=== PATIENT | male | born 1985 | race Caucasian/White ===

== ENCOUNTER 2020-09-14 15:00 | Observation (INO) | payer SELFPAY ==
[2020-09-14] MEDS ORDERED: Succinylcholine 200 MG/10 ml SYRINGE FS ONE (15:02)
[2020-09-14] MEDS ORDERED: PROPOFOL 200 MG/20 ML VIAL ONE (15:02)
[2020-09-14] MEDS ORDERED: Dexamethasone 20 MG/5 ML VIAL ONE (15:02)
[2020-09-14] MEDS ORDERED: Rocuronium Bromide 10 MG/ML (10ML VIAL) ONE (15:02)
[2020-09-14] MEDS ORDERED: Ketorolac Tromethamine 30 MG/ML VIAL ONE (15:02)
[2020-09-14] MEDS ORDERED: Lidocaine 1% PF 5 ML VIAL ONE (15:02)
[2020-09-14] MEDS ORDERED: Ondansetron PF 4 MG/2 ML Vial ONE (15:02)
[2020-09-14] MEDS ORDERED: Fentanyl 100 MCG/2 ML VIAL ONE (15:33)
[2020-09-14] MEDS ORDERED: Midazolam HCl 2 mg/2 ml Vial ONE (15:33)
[2020-09-14] MEDS ORDERED: Ampicillin/Sulbactam 3 GM in Sodium Chloride 0.9% 100 ML IVPB SCH (16:00)
[2020-09-14] MEDS ORDERED: Ondansetron HCl/PF 4 MG/2 ML Vial IVP PRN (16:41)
[2020-09-14] MEDS ORDERED: Promethazine HCl 25 MG/ML VIAL SLOW IVP PRN (16:41)
[2020-09-14] MEDS ORDERED: Promethazine HCl 25 MG/ML VIAL IM PRN (16:41)
[2020-09-14] MEDS ORDERED: Ketorolac Tromethamine 30 MG/ML VIAL IVP PRN (16:53)
[2020-09-14] MEDS ORDERED: Morphine 2 MG/ML VIAL SLOW IVP PRN (16:53)
[2020-09-14] MEDS ORDERED: Acetaminophen 650 MG Suppository PR PRN (17:51)
[2020-09-14] MEDS ORDERED: Acetaminophen 325 MG TAB PO PRN (17:51)
--- NOTE | 2020-09-14 17:52 | CON ---
DATE OF CONSULTATION: HISTORY OF PRESENT ILLNESS: A 34-year-old male, 1 week status post extraction of lower left mandibular dentition. Complains of multi-day midline and left neck swelling, significant pain and discomfort upon function. The patient has been on a course of clindamycin over the past week with no resolution and just continued progressive left and midline facial swelling. The patient presented to [facility] and longitudinal float operator was consulted for transfer to [facility] in [place], [place]. The patient was evaluated and examined in the day stay room. The patient's vitals at present were stable, although the patient was prior febrile at 101 and tachycardic. But upon examinations, vitals were noted to be stable and slightly tachycardic. The patient denied breathing difficulties, but complained of dysphagia. No chest pain. No shortness of breath. Severe submental swelling with extension to the left submandibular region. No noted external injuries or cuts. No floor of mouth elevation. Uvula noted to be midline. The patient was Mallampati class 3. Airway noted to be midline. White count elevated at 15. CT face demonstrated 2.5 to 3 cm submental abscess noted along the geniohyoid muscle and mylohyoid muscle noted with extension to the left inferior border of the mandible. IMPRESSION: Submental and left submandibular space infection, possible postsurgical involvement. PLAN: Discussed recommendations with the patient, which included incision and drainage of left submandibular and submental space infection with application of a [place] dressing. The patient advised he will be admitted to the hospital under Hospitalist Team for 23-hour observation and IV antibiotics. Discussed risks, benefits, indications, and alternatives, and all questions were answered. The patient elected to continue with the recommended procedure. Job ID: [id number]
[2020-09-14] MEDS ORDERED: HYDROcodone/Acetaminophen 5/325 mg Tablet ONE (19:48)
[2020-09-14] MEDS: Ampicillin/Sulbactam 3 GM in Sodium Chloride 0.9% 100 ML IVPB SCH (22:42)
[2020-09-14] MEDS: Famotidine/PF 20 mg/2ml Vial SLOW IVP SCH (22:42)
[2020-09-14 22:46] VITALS: BMI 36.6
[2020-09-14] MEDS: HYDROcodone/Acetaminophen 5/325 mg Tablet PO PRN (23:05)
--- NOTE | 2020-09-14 23:57 | PDOC.HHP ---
Hospitalist HPI History of Present Illness: ADMISSION DATE: 09/14/2020 TIME OF ASSESSMENT: 1700 PRIMARY CARE PHYSICIAN: None CHIEF COMPLAINT: Submandibular abscess HPI: This is a 34-year-old gentleman who is status post I&D of a submandibular abscess which he developed a week following extraction of the lower teeth. Patient states the swelling began on the left side of the neck with pain that progressively worsened over the last week. He apparently was treated with a course of clindamycin without any improvement. He was evaluated at [facility] by OM and then transferred here. He underwent incision and drainage earlier today and has been started on IV antibiotics with plans for discharge tomorrow. Dr. Bassett who performed the I&D has recommended observation overnight. At this time the patient denies having any pain or discomfort. Denies any nausea or vomiting. Feels well and is without any complaints. Has not had any recent fevers chills or sweats. No chest pain, palpitations or shortness of breath. All other review of systems are negative. ED Course: On arrival to the ER in [place] was noted to be febrile with a temp of 101.3. Blood cultures were obtained and he was given a dose of Zosyn 4.5 g IV. He received 1 g of Tylenol for the fever and 2 mg of morphine IV for the pain. Started on IV fluids with normal saline at 250 mL's per hour Neck CT was obtained demonstrating a 2.5 cm submandibular fluid collection in the midline presumed to be an abscess. Labs notable for white cell count 15, hemoglobin 13.1, hematocrit 40.2, platelets 388, neutrophils 83.8%. Lactic acid 1.6, calcium 11, AST 45, ALT 82, alk phos 196. Covid testing negative as well as flu A/B. Allergies/Adverse Reactions: Allergy/AdvReac Type Severity Reaction Status Date / Time No Known Allergies Allergy Verified 09/14/20 23:02 Home Medications: Medication Instructions Recorded Confirmed Type No Known 09/14/20 09/14/20 History Past History: PAST MEDICAL HISTORY: None PAST SURGICAL HISTORY: Status post I&D of submandibular abscess done today. SOCIAL HISTORY: Denies any tobacco use, alcohol consumption or drug use. FAMILY HISTORY: Noncontributory Hospitalist Exam Vitals: Weight Weight 262 lb 5.601 oz Hospitalist H&P A/P (1) Submandibular abscess Code(s): K12.2 - CELLULITIS AND ABSCESS OF MOUTH Status: Acute Assessment and Plan: s/p I&D Continue antibiotics as per Dr. Mccullough Wound care consulted (2) Transaminitis Code(s): R74.01 - ELEVATION OF LEVELS OF LIVER TRANSAMINASE LEVELS Status: Acute Assessment and Plan: Repeat LFTs in the AM Plan: GI Prophylaxis with Famotidine DVT Prophylaxis with mechanical SCDs CODE STATUS FULL Case discussed with Dr. Mac who agrees with plan as above.
[2020-09-15] MEDS: Ampicillin/Sulbactam 3 GM in Sodium Chloride 0.9% 100 ML IVPB SCH ×2 (05:21→10:10)
[2020-09-15] MEDS: HYDROcodone/Acetaminophen 5/325 mg Tablet PO PRN ×3 (05:24→14:25)
[2020-09-15 06:19] LABS: #Lymphocytes 2.5 thou/uL (1.20-3.40); #Monocytes 1.3 thou/uL (0.11-0.59); #Neutrophils 10.5 thou/uL (1.40-6.50); %Basophils 0.1 % (0.0-1.0); %Eosinophils 0.2 % (0.0-10.0); %Lymphocytes 17.1 % (21.0-51.0); %Monocytes 9.1 % (0.0-10.0); %Neutrophils 73.5 % (42.0-75.0); Hemoglobin 10.3 g/dL (14.0-18.0); Mean Corpuscular HGB CONC 34.6 g/dL (32.0-36.0); Mean Corpuscular Hemoglobin 30.5 pg (27.0-31.0); Mean Platelet Volume 5.8 fL (7.4-10.4); Platelet Count 373 thou/uL (130-400); RBC Distribution Width 11.2 % (11.5-14.5); Red Blood Cell (RBC) Count 3.39 mill/uL (4.70-6.10); White Blood Cell (WBC) Count 14.3 thou/uL (4.8-10.8)
[2020-09-15 06:38] LABS: ALT (SGPT) 49 U/L (8-55); AST (SGOT) 28 U/L (5-34); Albumin 3.7 g/dL (3.5-5.0); Alkaline Phosphatase 142 U/L (40-110); Bilirubin, Direct 0.2 mg/dL (0.1-0.3); Bilirubin, Total 0.3 mg/dL (0.2-1.2); Protein, Total 7.2 g/dL (6.0-8.3)
[2020-09-15 06:46] LABS: Anion Gap 13 mmol/L (10-20); BUN (Urea Nitrogen) 27 mg/dL (8.9-20.6); Calc. Creatinine Clearance 185 mL/min (70-130); Calcium 8.8 mg/dL (7.8-10.44); Carbon Dioxide 24 mmol/L (22-29); Chloride 104 mmol/L (98-107); Glucose 126 mg/dL (70-105); Lipase 31 U/L (8-78); Potassium 4.1 mmol/L (3.5-5.1); Sodium 137 mmol/L (136-145)
--- NOTE | 2020-09-15 06:59 | OP ---
DATE OF PROCEDURE: 09/14/2020 PREOPERATIVE DIAGNOSES: Submental space infection, left submandibular space infection. POSTOPERATIVE DIAGNOSES: Submental space infection, left submandibular space infection. TREATMENT: Incision and drainage of left submandibular space infection and submental space infection, anaerobic and aerobic cultures. PASSENGER SERVICE AGENT: None. ESTIMATED BLOOD LOSS: Less than 15 mL. FINDINGS: Severe submental swelling. No external cuts or lacerations noted. 10 to 15 mL of purulence was expressed upon incision and drainage. Copious saline irrigation, mixed with 1 L of saline and 50,000 units of bacitracin. DISPOSITION: The patient was extubated and transferred to the PACU with spontaneous respirations intact. DESCRIPTION OF PROCEDURE: On the day of surgery, the patient was met in the preoperative holding area and evaluated for submental and submandibular space infection after clinical and radiographic examination was noted that the patient would benefit from incision and drainage of left submandibular and submental space infection. The patient is currently 1 week status post extraction of left lower teeth of the mandible at [facility] in [place], [place], with progressive swelling over the past few days and refractive to clindamycin antibiotic that was prescribed. Discussed risks, benefits, indications, and alternatives. The patient elects to continue with recommended procedure. Informed consent was completed. The patient was then transferred to operating room C, placed supine on the operating table. Cardiopulmonary monitors were applied. The patient was then induced in a state of general anesthesia by the Anesthesia Team via an oral endotracheal tube. Once tube position was confirmed, it was secured by the Anesthesia Team. The patient was then prepped and draped in a standard sterile fashion. Next, using 1 mL of 1% lidocaine and 1:100,000 epinephrine, locally infiltrated along the predetermined incision sites. I made a 1 cm incision at the depth of the mid submental swelling to allow for gravity dependent drainage. Incision using a 15 blade was then made down through skin and subcutaneous tissue, using cautery, confirmed hemostasis. Next, using hemostats, had a blunt dissection down to the superficial layer of deep cervical fascia and then finger dissection into the cavitation in the submental and submandibular region. Significant purulence was expressed, aerobic and anaerobic cultures were performed. Then copious saline irrigation was performed with saline mixture with 1 L of saline with 50,000 units of bacitracin. A total of 500 mL of irrigation was performed. The cavitation was noted to extend to the left inferior border of the mandible. Able to palpate geniohyoid muscle, mid portion of the mylohyoid. At this point, procedure was deemed to complete. Site was hemostatic. Placed a quarter-inch [place], secured with a 2-0 Prolene. Next, with Telfa, bacitracin, 4x4 gauze and a dressing along the neck. The patient was then extubated. Spontaneous respirations intact, transferred to PACU without complication. Job ID: [id number]
[2020-09-15] MEDS: Famotidine/PF 20 mg/2ml Vial SLOW IVP SCH (10:10)
[2020-09-15 11:08] VITALS: BP 133/74; TEMP 98.5
--- NOTE | 2020-09-15 19:44 | DIS ---
DATE OF ADMISSION: 09/14/2020 DATE OF DISCHARGE: 09/15/2020 DISCHARGE DISPOSITION: Home. DISCHARGE DIAGNOSIS: Submandibular abscess. DISCHARGE MEDICATION: The patient was discharged on an antibiotic as per Dr. Mccullough. CODE STATUS: Full code. ALLERGIES: NO KNOWN DRUG ALLERGIES. PROCEDURES DONE DURING ADMISSION: The patient had an I and D of the submandibular abscess. HOSPITAL COURSE: Mr. Smith is a 34-year-old gentleman, whom, please note that, I never got a chance to see. He was discharged before I could see him by Dr. Mccullough, but was admitted for a submandibular abscess, which was likely the result of a tooth that was pulled. He underwent I and D of the abscess by Dr. Patric Mccullough and was subsequently discharged by Dr. Mccullough the following day. His vital signs were stable. He was an afebrile at the time of discharge. Job ID: [id number]
== END 2020-09-15 14:55 | disposition home or self-care (01) ==
LOC: SDC 15:00 → SURG A 18:00
PROVIDERS: ADMIT Oral & Maxillofacial Surgery; ATTEND Internal Medicine
PROC: 0J910ZZ Drainage of Face Subcutaneous Tissue and Fascia, Open Approach (ICD-10-PCS; principal; 2020-09-14)
DX: K12.2 Cellulitis and abscess of mouth (principal); L02.01 Cutaneous abscess of face; R74.01 Elevation of levels of liver transaminase levels
CPT/HCPCS: 36415; 80048; 80076; 83690; 85025; 87070; 87205; 96365; 96366; 96375; G0378; J0295; J1100; J1885; J2001; J2250; J2405; J2704; J3010; J3490; S0028